=== PATIENT | female | born 1980 | race Caucasian/White ===

== ENCOUNTER → 2016-11-03 | Outpatient (CLI) | payer OTHER | LOC: HPND 10:44 | DX: O09.522 Supervision of elderly multigravida, second trimester (principal); O44.22 Partial placenta previa NOS or without hemorrhage, second trimester; O10.012 Pre-existing essential hypertension complicating pregnancy, second trimester; Z3A.18 18 weeks gestation of pregnancy | CPT/HCPCS: 76811 ==

== ENCOUNTER → 2016-12-01 | Outpatient (CLI) | payer OTHER | LOC: HPND 09:37 | DX: O09.522 Supervision of elderly multigravida, second trimester (principal); O10.012 Pre-existing essential hypertension complicating pregnancy, second trimester; O44.02 Complete placenta previa NOS or without hemorrhage, second trimester; Z3A.22 22 weeks gestation of pregnancy | CPT/HCPCS: 76816 ==

== ENCOUNTER → 2016-12-30 | Outpatient (CLI) | payer OTHER | LOC: HPND 13:04 | DX: O99.332 Smoking (tobacco) complicating pregnancy, second trimester (principal); O09.522 Supervision of elderly multigravida, second trimester; O10.012 Pre-existing essential hypertension complicating pregnancy, second trimester; O44.22 Partial placenta previa NOS or without hemorrhage, second trimester | CPT/HCPCS: 76816 ==

== ENCOUNTER → 2017-03-08 | Outpatient (CLI) | payer OTHER | LOC: HPND 13:05 | DX: O09.523 Supervision of elderly multigravida, third trimester (principal); O99.333 Smoking (tobacco) complicating pregnancy, third trimester; O99.810 Abnormal glucose complicating pregnancy; F17.210 Nicotine dependence, cigarettes, uncomplicated | CPT/HCPCS: 76816 ==